=== PATIENT | male | born 1950 | race Caucasian/White ===

== ENCOUNTER → 2025-01-03 11:30 | Outpatient (REF) | payer OTHER, SELFPAY ==
[2025-01-03 12:27] LABS: % Basophils 0.4 % (0-2); % Eosinophils 1.5 % (0-6); % Immature Granulocytes 0.3 % (0-0.5); % Lymphocytes 27.4 % (20.5-51.1); % Monocytes 6.1 % (1.7-9.3); % Neutrophils 64.3 % (42.2-75.2); Absolute Eosinophils 0.1 10^3/uL (0-0.7); Absolute Lymphocytes 1.9 10^3/uL (1.2-3.4); Absolute Monocytes 0.4 10^3/uL (0.1-0.6); Absolute Neutrophils 4.4 10^3/uL (1.4-6.5); Hematocrit 38.1 % (39.0-52.0); Mean Corp Hgb Conc. 34.1 g/dL (33.0-37.0); Mean Corpuscular Hgb 33.8 pg (27.0-31.0); Mean Platelet Volume 11.1 fL (7.4-10.4); Nucleated Red Blood Cells % 0 % (-); Platelet Count 166 10^3/uL (130-400); Red Blood Cell Count 3.85 10^6/uL (4.70-6.10); Red Cell Dist. Width 12.1 % (11.5-14.5); White Blood Cell Count 6.8 10^3/uL (4.8-10.8)
[2025-01-03 12:57] LABS: ALT (SGPT) 46 U/L (0-50); AST (SGOT) 39 U/L (17-59); Albumin 5.2 g/dl (3.5-5.0); Alkaline Phosphatase 74 U/L (38-126); Blood Urea Nitrogen 23 mg/dl (9-20); Calcium 10.6 mg/dl (8.4-10.2); Carbon Dioxide 21 mmol/L (22-30); Chloride 108 mmol/L (98-107); Glucose 129 mg/dl (70-99); HDL Cholesterol 50 mg/dl; LDL Cholesterol, Calculated 33 mg/dl; Potassium 4.7 mmol/L (3.5-5.1); Sodium 144 mmol/L (135-145); Total Bilirubin 0.8 mg/dl (0.2-1.3); Total Cholesterol 104 mg/dl (50-199); Total Protein 7.6 g/dl (6.3-8.2); Triglyceride 109 mg/dl (10-149); Very Low Density Lipoprotein 21 mg/dl (0-30); eGFR > 60.00
[2025-01-03 13:19] LABS: PSA, Total - Screen 1.46 ng/ml (0.0-4.0)
[2025-01-03 14:10] LABS: Microalbumin, Random Urine 1.8 mg/dl (0.6-1.7); Microalbumin/creatinine Ratio 6.8 mg/g
[2025-01-03 14:19] LABS: Glycohemoglobin (HgbA1c) 6.8 % (4.0-5.6)
[2025-01-04 10:28] LABS: Intact PTH 40.4 pg/ml (13.6-85.8)
== END ==
LOC: REG 11:30
PROVIDERS: ATTENDING PHYSICIAN Nurse Practitioner Family
DX: E11.9 Type 2 diabetes mellitus without complications (principal); F32.9 Major depressive disorder, single episode, unspecified; Z12.5 Encounter for screening for malignant neoplasm of prostate
CPT/HCPCS: 36415; 80053; 80061; 82043; 82570; 83036; 83970; 84443; 85025; G0103

== ENCOUNTER → 2025-01-24 14:34 | Outpatient (REF) | payer OTHER, SELFPAY ==
[2025-01-24 15:45] LABS: Blood Urea Nitrogen 25 mg/dl (9-20); Calcium 9.9 mg/dl (8.4-10.2); Carbon Dioxide 23 mmol/L (22-30); Chloride 107 mmol/L (98-107); Glucose 115 mg/dl (70-99); Potassium 4.6 mmol/L (3.5-5.1); Sodium 140 mmol/L (135-145); eGFR > 60.00
[2025-01-25 11:01] LABS: Intact PTH 65.8 pg/ml (13.6-85.8)
== END ==
LOC: RAD 14:34
PROVIDERS: ATTENDING PHYSICIAN Nurse Practitioner Family
DX: J18.9 Pneumonia, unspecified organism (principal); E83.52 Hypercalcemia
CPT/HCPCS: 36415; 71046; 80048; 82330; 83970

== ENCOUNTER 2025-05-20 17:55 | Emergency (ER) | payer OTHER, SELFPAY ==
[2025-05-20 17:56] VITALS: BP 153/86
[2025-05-20 19:14] VITALS: BP 153/64
[2025-05-20 19:17] VITALS: BMI 29.7
[2025-05-20 19:28] LABS: Hematocrit 40.5 % (39.0-52.0); Hemoglobin 14.0 g/dL (13.0-18.0); Mean Corp Hgb Conc. 34.6 g/dL (33.0-37.0); Mean Corpuscular Volume 94.8 fL (80.0-94.0); Nucleated Red Blood Cells % 0 % (-); Platelet Count 146 10^3/uL (130-400); Red Cell Dist. Width 12.6 % (11.5-14.5)
[2025-05-20] MEDS: MORPHINE SULFATE 4 MG IV (19:39)
[2025-05-20 19:48] LABS: ALT (SGPT) 34 U/L (0-50); AST (SGOT) 35 U/L (17-59); Albumin 5.3 g/dl (3.5-5.0); Alkaline Phosphatase 74 U/L (38-126); Blood Urea Nitrogen 31 mg/dl (9-20); Calcium 10.5 mg/dl (8.4-10.2); Carbon Dioxide 21 mmol/L (22-30); Chloride 106 mmol/L (98-107); Estimated Creatinine Clearance 48 ml/min; Glucose 197 mg/dl (70-99); Potassium 5.0 mmol/L (3.5-5.1); Sodium 140 mmol/L (135-145); Total Protein 7.6 g/dl (6.3-8.2); eGFR > 60.00
--- NOTE | 2025-05-20 19:57 | ED.GENMED ---
History of Present Illness
General
Chief Complaint: Abdominal Symptoms
Source: patient and family
Exam Limitations: none
Time Seen by Provider: 05/20/25 19:21
Nursing documentation reviewed up to this point in time: agreed with
History of Present Illness
History of Present Illness:
75 male presents with abdominal pain woke up today feeling fine, he has chronic shortness of breath, unable to quantify how long as well as on for me scheduled to see pulmonary, said bypass surgery, in [facility], unsure of the details, his
gallbladder is out, had dinner tonight and had lower abdominal pain sweatiness felt like he needed to have a bowel movement could not have a bowel movement came to the ER since he has been in the ER has had a bowel movement and is feeling better
though still feels short of breath which again is a chronic problem for him he is also having some shakiness of his right leg he took some [id number] restless leg treatment which seem to have helped him, not currently drinking or smoking, had
heart stents prior to his bypass surgery,
Past History
Past History
ED Past Medical History: CAD, HTN, Other (Chronic dyspnea) and Other (Restless leg)
ED Past Surgical History: Cardiac and Cholecystectomy
Social History
Tobacco: Non-smoker
Alcohol: None
Drug: None
Living: with family
Employment: Retired
Review of Systems
Review of Systems
All Other Systems: Not applicable
Constitutional: Reports fatigue; Denies fever
Respiratory: Reports trouble breathing; Denies cough or hemoptysis
Cardiac: Denies chest pain
ABD/GI: Reports abdominal pain; Denies nausea or vomiting
: Reports no symptoms
Musculoskeletal: Reports no symptoms
Phy Exam
Physical Exam
Physical Exam:
Physical Exam
General: Chronically ill-appearing male breathing fast
Neck: No jaundice
Heart: Regular median sternotomy
Lungs: Neck without cracked
Abdomen: Soft nontender scar in the right upper abdomen
Neuro: alert and oriented. no focal neurological deficits
Skin: no rash
Psychiatric: Anxious but cooperative
Extremities: Edema is present
Course
Orders/Labs/Results
Orders:
Orders
05/20/25 19:20
Complete Blood Count/With Diff Urgent
Comprehensive Metabolic Panel Urgent
05/20/25 19:31
Add On- LAB Urgent
Tests Added?: bnp
05/20/25 19:32
Chest/Abd Angio w/wo Contrast CT [CT Chest/abd Angio W/wo Iv Con] Urgent
Comment:
Reason For Exam: cp pain, sob, abd pain tachy
Morphine Sulfate 4 mg IV NOW STA
05/20/25 19:37
Electrocardiogram (*1) Urgent
Reason for Study: Abdominal Pain
EKG- Treatment ONCE
05/20/25 19:45
NT-proBNP Urgent
Comment: ADDON
Troponin I Urgent
Abnormal Lab Results
05/20/25
19:20
RBC 4.27 L 10^6/uL
(4.70-6.10)
MCV 94.8 H fL
(80.0-94.0)
MCH 32.8 H pg
(27.0-31.0)
MPV 10.7 H fL
(7.4-10.4)
Absolute Neuts (auto) 8.4 H 10^3/uL
(1.4-6.5)
Absolute Monos (auto) 0.8 H 10^3/uL
(0.1-0.6)
Neutrophils % 78.2 H %
(42.2-75.2)
Lymphocytes % 14.0 L %
(20.5-51.1)
Carbon Dioxide 21 L mmol/L
(22-30)
BUN 31 H mg/dl
(9-20)
Glucose 197 H mg/dl
(70-99)
Calcium 10.5 H mg/dl
(8.4-10.2)
Albumin 5.3 H g/dl
(3.5-5.0)
05/20/25 19:20
05/20/25 19:20
Vital Signs
Initial and Last Documented VS:
Initial Vital Signs
Pulse Resp BP Pulse Ox
70 26 153/86 100
05/20/25 17:56 05/20/25 17:56 05/20/25 17:56 05/20/25 17:56
Last Documented Vital Signs
Pulse Resp BP Pulse Ox
71 21 153/64 100
05/20/25 20:45 05/20/25 20:45 05/20/25 19:14 05/20/25 20:45
MDM/Problems Addressed
Differential Diagnosis Includes:
Constipation diverticulitis AAA dissection PE ACS heart failure anxiety diverticular disease renal stone
MDM/Problems Addressed:
Abdominal pain constipation which resolved chronic tachypnea
Chronic conditions affecting care: CAD, Arrhythmia (Chronic right bundle branch block) and Previous abdomnial surgery
Acute Exacerbation and/or Progression of Chronic Illness: CAD and Previous abdomnial surgery
*Radiology
Radiology exam reviewed: radiology read reviewed
*Pulse Oximetry
SaO2: 100
Oxygen Mode of Delivery: Room air
Patient hypoxic: no
*EKG
Interpreted by ED Provider?: Yes
Interpretation: abnormal
Comparison EKG: no comparison EKG present
Heart Rate: 78
Rate: normal
Rhythm: sinus
QRS Pattern: right bundle branch block
Ischemia: non-specific ST changes
*Game Breeding Farm Manager Interpretation
Rate: normal
Interpretation: normal
Heart Rate: 78
Rhythm: sinus
*Critical Care Note
Total Time (30-74mins, 75-104mins- exclusive of procedures): Not Applicable
Update Note
Update Note:
10:[address] noted labs noted, differential as noted in the CT report patient is feeling better now, from a GI standpoint he feels short of breath which is not new according to family members, review of nursing he has been intermittently
tachypneic but at times not tachypneic, never hypoxic, reviewed with patient he has an appointment with pulmonary on June 18, I will see if I can get that pushed up in the meantime I did offer the patient admission and he prefers to go home, he
has no PE no dissection no RI I do not think he has sepsis, he states he had normal PFTs when he lived in [place] and normal echo cardiology said it was in his heart, per the patient, he was even talked it could be psychiatric versus behavioral
ED Attending Note
-
Portions of this chart may have been created with voice recognition software.� Occasional wrong word or��sound alike� substitutions may have occurred due to the inherent limitations of voice recognition software.
Discharge Plan
Departure
Patient Disposition: Home (Routine Discharge)
Date of Disposition: 05/20/25
Time of Disposition: 22:29
Patient with high blood pressure during this ER visit?: Yes
Condition: Good
Covid-19: Not Applicable
Discharge Problem:
Abdominal pain, Chronic shortness of breath
Instructions: Abdominal Pain, Shortness of breath in adults - ED (DC)
Referrals:
Ana Cristina Lazcano CRNP [Family Provider, Internal Medicine] - Next open appointment
Cas Bernal MD [Active, Pulmonary Medicine] - Keep scheduled appt
Activity Restrictions/Additional Instructions:
Follow-up with pulmonary as scheduled
Follow-up with your primary care provider
You are welcome return to the ER for worsening symptoms
Interventions
Interventions:
*Risk Screen - Suicide Last Done: 05/20/25 17:56
*General Assessment Last Done: 05/20/25 19:15
*Neglect/Abuse Screening Last Done: 05/20/25 19:15
*ED- Fall Risk Assessment Last Done: 05/20/25 19:15
*ED COVID-19 Vaccine History Last Done: 05/20/25 19:15
TR-Gowngc-Cnqaptadxy Assessment Last Done: 05/20/25 19:11
Discharge Date and Time
Print Language: MALTESE
[2025-05-20 20:28] LABS: Troponin I < 0.012 ng/ml
[2025-05-20 22:42] VITALS: BP 138/74
== END 2025-05-20 22:51 | disposition home or self-care (01) ==
LOC: EMR 17:55
PROVIDERS: EMERGENCY PHYSICIAN Emergency Medicine; FAMILY PHYSICIAN Nurse Practitioner Family
DX: R10.9 Unspecified abdominal pain (principal); R06.02 Shortness of breath; I25.10 Atherosclerotic heart disease of native coronary artery without angina pectoris; I10 Essential (primary) hypertension; G25.81 Restless legs syndrome; Z90.49 Acquired absence of other specified parts of digestive tract
CPT/HCPCS: 99284; 96374; 71275; 74175; 80053; 83880; 84484; 85025; 93005; Q9967

== ENCOUNTER → 2025-06-24 13:46 | Outpatient (REF) | payer OTHER, SELFPAY | LOC: HWRCS 13:46 | PROVIDERS: ATTENDING PHYSICIAN Internal Medicine; FAMILY PHYSICIAN Nurse Practitioner Family | DX: R06.02 Shortness of breath (principal) | CPT/HCPCS: 93306 ==

== ENCOUNTER 2025-06-28 16:41 | Emergency (ER) | payer OTHER, SELFPAY ==
[2025-06-28 16:41] VITALS: BMI 31.4
[2025-06-28 16:46] VITALS: BP 136/68
[2025-06-28 17:00] VITALS: BP 143/63
--- NOTE | 2025-06-28 17:01 | ED.GENMED ---
History of Present Illness
General
Chief Complaint: Breathing Problem
Source: patient
Exam Limitations: none
Time Seen by Provider: 06/28/25 16:50
History of Present Illness
History of Present Illness:
75 year old male from [facility] Living here for ongoing shortness of breath. He thinks there is no worsening symptoms but due to the persistence, he presents here today. He was having intermittent chest pain yesterday which is new, but denies
any chest pain currently. On xarelto for history of DVT. No missed doses. Saw a corrections identification technician on 06/20. History of CAD requiring CABG x 5 in [facility]. No fever. No cough. No orthopnea. Notes a good appetite. No other complaints.
Past History
Past History
ED Past Medical History: CAD, HTN, Other (Chronic dyspnea) and Other (Restless leg)
ED Past Surgical History: Cardiac and Cholecystectomy
Social History
Tobacco: Non-smoker
Alcohol: None
Drug: None
Living: with family
Employment: Retired
Phy Exam
Physical Exam
Physical Exam:
General: Well developed male no acute respiratory distress
HEENT: NC/AT
Heart: RRR, no murmurs
lungs; Clear bilaterally
Ext: mild thang, no cyanosis
Skin: warm, no rash.
Abd: soft, nontender
Scores
Heart Failure Risk
Heart Failure Risk Score: Not Applicable
Course
Orders/Labs/Results
Orders:
Orders
06/28/25 17:01
CR Chest - 2 Views Urgent
Comment:
Reason For Exam: sob
06/28/25 17:07
Electrocardiogram (*1) Urgent
Reason for Study: Shortness of Breath
EKG- Treatment ONCE
06/28/25 17:19
Complete Blood Count/With Diff Urgent
Comprehensive Metabolic Panel Urgent
NT-proBNP Urgent
Troponin I Urgent
Abnormal Lab Results
06/28/25
17:19
RBC 3.80 L 10^6/uL
(4.70-6.10)
Hgb 12.9 L g/dL
(13.0-18.0)
Hct 36.6 L %
(39.0-52.0)
MCV 96.3 H fL
(80.0-94.0)
MCH 33.9 H pg
(27.0-31.0)
MPV 10.8 H fL
(7.4-10.4)
Glucose 144 H mg/dl
(70-99)
06/28/25 17:19
06/28/25 17:19
Vital Signs
Initial and Last Documented VS:
Initial Vital Signs
Pulse Resp
75 17
06/28/25 16:45 06/28/25 16:45
Last Documented Vital Signs
Temp Pulse Resp BP Pulse Ox
98.2 F 67 18 138/63 99
06/28/25 16:48 06/28/25 17:45 06/28/25 17:45 06/28/25 17:30 06/28/25 18:00
MDM/Problems Addressed
Differential Diagnosis Includes:
Patient here with ongoing shortness of breath. This is not new but is persistent. There is no respiratory distress. He is not hypoxic. He is not requiring any additional oxygen here. He is mildly edematous. Will perform workup of EKG troponin
BNP chest x-ray. Unlikely to be PE secondary to anticoagulated state.
*Pulse Oximetry
SaO2: 100
Oxygen Mode of Delivery: Room air
Patient hypoxic: no
*Critical Care Note
Total Time (30-74mins, 75-104mins- exclusive of procedures): Not Applicable
Update Note
Update Note:
Patient remained stable here. Chest x-ray clear without evidence of pulmonary edema BNP and troponin are normal. Patient reexamined no further respiratory distress. He is never required oxygen here he has never been hypoxic. He has had symptoms
similar to this in the past. He has been seen by pulmonology within the past 2 weeks who referred him to cardiology. He has an appointment with them in about a week and a half. I reviewed recent echocardiogram which showed an ejection fraction of
61%. This was dated June 20 of this year
ED Attending Note
-
Portions of this chart may have been created with voice recognition software.� Occasional wrong word or��sound alike� substitutions may have occurred due to the inherent limitations of voice recognition software.
Discharge Plan
Departure
Patient Disposition: Home (Routine Discharge)
Date of Disposition: 06/28/25
Time of Disposition: 20:21
Patient with high blood pressure during this ER visit?: No
Discharge Problem:
Chronic shortness of breath
Instructions: Shortness of Breath (Dyspnea) (DC)
Referrals:
UNKNOWN - PT NOT,INTERVIEWE [Family Provider]
Activity Restrictions/Additional Instructions:
Please return here if needed otherwise follow-up with cardiology as planned
Interventions
Interventions:
*Risk Screen - Suicide Last Done: 06/28/25 16:48
*General Assessment Last Done: 06/28/25 16:48
*Neglect/Abuse Screening Last Done: 06/28/25 16:48
*ED- Fall Risk Assessment Last Done: 06/28/25 16:48
ED- Cardiac Assessment Last Done: 06/28/25 16:48
ED- Pulmonary Assessment Last Done: 06/28/25 16:48
Discharge Date and Time
Print Language: MALDIVIAN
[2025-06-28 17:30] VITALS: BP 138/63
[2025-06-28 17:39] LABS: Hematocrit 36.6 % (39.0-52.0); Hemoglobin 12.9 g/dL (13.0-18.0); Mean Corp Hgb Conc. 35.2 g/dL (33.0-37.0); Mean Corpuscular Volume 96.3 fL (80.0-94.0); Nucleated Red Blood Cells % 0 % (-); Platelet Count 138 10^3/uL (130-400); Red Cell Dist. Width 13.0 % (11.5-14.5)
[2025-06-28 18:00] LABS: AST (SGOT) 36 U/L (17-59); Albumin 4.7 g/dl (3.5-5.0); Alkaline Phosphatase 54 U/L (38-126); Blood Urea Nitrogen 17 mg/dl (9-20); Calcium 10.1 mg/dl (8.4-10.2); Carbon Dioxide 22 mmol/L (22-30); Chloride 107 mmol/L (98-107); Estimated Creatinine Clearance 62 ml/min; Glucose 144 mg/dl (70-99); Potassium 3.8 mmol/L (3.5-5.1); Sodium 139 mmol/L (135-145); Total Protein 7.1 g/dl (6.3-8.2); eGFR > 60.00
[2025-06-28 18:03] LABS: Troponin I < 0.012 ng/ml
[2025-06-28 18:10] LABS: ALT (SGPT) 35 U/L (0-50)
[2025-06-28 18:58] VITALS: BP 143/73
[2025-06-28 19:00] VITALS: BP 158/68
== END 2025-06-28 20:30 | disposition home or self-care (01) ==
LOC: EMR 16:41
PROVIDERS: Physician Assistant; EMERGENCY PHYSICIAN Emergency Medicine
DX: R06.02 Shortness of breath (principal); I25.10 Atherosclerotic heart disease of native coronary artery without angina pectoris; I10 Essential (primary) hypertension; G25.81 Restless legs syndrome; Z86.718 Personal history of other venous thrombosis and embolism; Z79.01 Long term (current) use of anticoagulants; Z95.1 Presence of aortocoronary bypass graft; Z90.49 Acquired absence of other specified parts of digestive tract
CPT/HCPCS: 99285; 71046; 80053; 83880; 84484; 85025; 93005

== ENCOUNTER → 2025-07-09 12:32 | Outpatient (REF) | payer OTHER, SELFPAY ==
[2025-07-09 13:37] LABS: ALT (SGPT) 23 U/L (0-50); AST (SGOT) 22 U/L (17-59); Albumin 4.6 g/dl (3.5-5.0); Alkaline Phosphatase 57 U/L (38-126); Blood Urea Nitrogen 24 mg/dl (9-20); Calcium 9.5 mg/dl (8.4-10.2); Carbon Dioxide 22 mmol/L (22-30); Chloride 108 mmol/L (98-107); Glucose 173 mg/dl (70-99); HDL Cholesterol 56 mg/dl; LDL Cholesterol, Calculated 48 mg/dl; Potassium 4.6 mmol/L (3.5-5.1); Sodium 141 mmol/L (135-145); Total Protein 6.9 g/dl (6.3-8.2); Very Low Density Lipoprotein 20 mg/dl (0-30); eGFR > 60.00
[2025-07-09 14:26] LABS: Glycohemoglobin (HgbA1c) 6.9 % (4.0-5.6)
== END ==
LOC: REG 12:32
PROVIDERS: ATTENDING PHYSICIAN Nurse Practitioner Family
DX: E11.9 Type 2 diabetes mellitus without complications (principal)
CPT/HCPCS: 36415; 80053; 80061; 83036

== ENCOUNTER → 2025-07-24 15:10 | Outpatient (REF) | payer OTHER, SELFPAY | LOC: DHVS 15:10 | PROVIDERS: ATTENDING PHYSICIAN Internal Medicine Cardiovascular Disease; FAMILY PHYSICIAN Nurse Practitioner Family | DX: I65.23 Occlusion and stenosis of bilateral carotid arteries (principal) | CPT/HCPCS: 93880 ==

== ENCOUNTER 2025-07-27 10:36 | Emergency (ER) | payer OTHER, SELFPAY ==
[2025-07-27 10:53] VITALS: BP 130/64
--- NOTE | 2025-07-27 11:46 | ED.MUSCINJ ---
HPI-Injury
General
Chief Complaint: Fall
Source: patient
Exam Limitations: none
Time Seen by Provider: 07/27/25 11:36
History of Present Illness-Injury
Initial Injury comments:
75-year-old male on [place] presents from [facility] after a fall he sustained yesterday afternoon. He woke up from a nap in his recliner lost his balance going to the bathroom and fell onto his left shoulder. He may have
hit his head. He denies loss of conscious. He notes more so left shoulder pain and slight lower back pain. He is ambulatory usually on his own without a cane or walker. He has been since the fall. No chest pain. No other complaints
Past History
Past History
ED Past Medical History: CAD, HTN, Other (Chronic dyspnea) and Other (Restless leg)
ED Past Surgical History: Cardiac and Cholecystectomy
Social History
Tobacco: Non-smoker
Alcohol: None
Drug: None
Living: with family
Employment: Retired
Phy Exam
Physical Exam
Physical Exam:
General: Well-appearing male no acute respiratory distress
HEENT normocephalic no obvious scalp abrasion or hematoma
Heart: Regular rate and rhythm
Lungs: Clear no wheeze
Musculoskeletal exam: Cervical spine nontender. He is mildly diffusely tender about the lumbar spine. Left shoulder tender superiorly over the clavicle and distal portion of the clavicle. No obvious deformities. The elbow is nontender good range
of motion to the extremity
Injury Course
Orders/Labs/Results
Orders:
Orders
07/27/25 10:53
Shoulder, Left 2 View CR [CR Shoulder - Left Min 2 View*] Urgent
Comment:
Reason For Exam: pain after fall
07/27/25 11:45
Hydrocodone 5/APAP 325 [[place] 5/325] 1 tablet PO NOW STA
CR Lumbar Spine 2 Or 3 Views Urgent
Comment:
Reason For Exam: fall
07/27/25 11:46
CT Head W/o Iv Contrast Urgent
Comment:
Reason For Exam: head injury
07/27/25 12:44
Sling Left-Treatment ONCE
MDM/Problems Addressed
Differential Diagnosis Includes:
Mechanical fall with left shoulder pain possible head strike on Xarelto. CT of the head ordered to evaluate for intracranial hemorrhage or skull fracture. X-rays left shoulder pending to evaluate for fracture or dislocation versus contusion.
X-ray lumbar spine ordered as well
*Pulse Oximetry
SaO2: 99
Oxygen Mode of Delivery: Room air
Patient hypoxic: no
*Critical Care Note
Total Time (30-74mins, 75-104mins- exclusive of procedures): Not Applicable
Update Note
Update Note:
X-ray left shoulder demonstrates distal clavicle fracture that is minimally displaced. CT of the head is negative. X-ray lumbar spine without acute finding. Sling applied. Will prescribe pain medicine. Stable for discharge with orthopedic
ED Attending Note
-
Portions of this chart may have been created with voice recognition software.� Occasional wrong word or��sound alike� substitutions may have occurred due to the inherent limitations of voice recognition software.
Discharge Plan
Departure
Patient Disposition: Home (Routine Discharge)
Date of Disposition: 07/27/25
Time of Disposition: 13:25
Patient with high blood pressure during this ER visit?: No
Discharge Problem:
Clavicle fracture
Prescriptions:
New
hydrocodone-acetaminophen 5-325 mg tablet
1 tab PO TID PRN (Reason: Pain) Qty: 10 0RF
Referrals:
Ana Cristina Lazcano CRNP [Family Provider, Internal Medicine]
Leighton Jerome MD [Active, Orthopedics]
Activity Restrictions/Additional Instructions:
Use sling for support. Use pain medicine as needed for severe pain. Return if worse otherwise follow-up with orthopedics
Interventions
Interventions:
*Risk Screen - Suicide Last Done: 07/27/25 10:51
*General Assessment Last Done: 07/27/25 10:51
*Neglect/Abuse Screening Last Done: 07/27/25 11:37
*ED- Fall Risk Assessment Last Done: 07/27/25 11:37
*ED COVID-19 Vaccine History Last Done: 07/27/25 11:37
*ED Influenza Vaccine History Last Done: 07/27/25 11:37
ED-Musculoskeletal Assessment Last Done: 07/27/25 11:37
ED- Neurological Assessment Last Done: 07/27/25 11:37
ED-Skin Assessment Last Done: 07/27/25 11:37
Discharge Date and Time
Print Language: BULGARIAN
[2025-07-27] MEDS: NORCO 5/325 1 TABLET PO (12:02)
[2025-07-27 12:20] VITALS: BP 136/69
== END 2025-07-27 13:50 | disposition home or self-care (01) ==
LOC: EMR 10:36
PROVIDERS: EMERGENCY PHYSICIAN Emergency Medicine; FAMILY PHYSICIAN Nurse Practitioner Family
DX: S42.035A Nondisplaced fracture of lateral end of left clavicle, initial encounter for closed fracture (principal); W18.39XA Other fall on same level, initial encounter; Y93.01 Activity, walking, marching and hiking; Y92.038 Other place in apartment as the place of occurrence of the external cause; I25.10 Atherosclerotic heart disease of native coronary artery without angina pectoris; I10 Essential (primary) hypertension; Z79.01 Long term (current) use of anticoagulants
CPT/HCPCS: 99284; 70450; 72100; 73030

== ENCOUNTER 2025-07-31 23:56 | Emergency (ER) | payer OTHER, SELFPAY ==
[2025-08-01 00:18] LABS: Glucose - Point of Care 122 mg/dl (70-99)
--- NOTE | 2025-08-01 01:14 | ED.GENMED ---
Addendum entered and electronically signed by Freddy Valle DO 08/01/25 02:35:
Discussed with patient he gives consent for transfer to [facility] trauma center
Call to the transfer center discussed with trauma attending
Addendum entered and electronically signed by Freddy Valle DO 08/01/25 02:16:
Discussed with the radiology small subdural
CRITICAL CARE STATEMENT: A total of 32minutes of critical care time was provided for this patient. This includes management of unstable vital signs, evaluation of the patient at bedside, reviewing the patient's pertinent medical records discussion
with EMS providers and patient's family in addition to discussion with consultants, review of old EKGs and review of pertinent medical records. This time with separate from time utilized to perform the aforementioned documented procedures
Original Note:
History of Present Illness
General
Chief Complaint: Fall
Source: patient, records and previous radiology exam
Exam Limitations: none
Time Seen by Provider: 08/01/25 00:47
History of Present Illness
History of Present Illness:
75-year-old male on Xarelto fell getting out of recliner struck his head no loss of consciousness
Past History
Past History
ED Past Medical History: CAD, HTN, Other (Chronic dyspnea) and Other (Restless leg)
ED Past Surgical History: Cardiac and Cholecystectomy
Social History
Tobacco: Non-smoker
Alcohol: None
Drug: None
Living: with family
Employment: Retired
Phy Exam
Physical Exam
Physical Exam:
Physical Exam
General: Fair complected male, resting in no acute distress
Neck: No tongue bite no posterior
Heart: Regular
Lungs: no acute respiratory distress. clear bilaterally point tender in the left AC joint
Abdomen: Round
Neuro: alert and oriented. no focal neurological deficits
Skin: no rash
Psychiatric: well kept. interactive and cooperative
Extremities: Trace edema
Course
Orders/Labs/Results
Orders:
Orders
08/01/25 00:[address] [CT Head W/o Iv Contrast] Urgent
Comment:
Reason For Exam: Fall on xarelto
08/01/25 00:43
Cervical Spine wo Contrast CT [CT Cervical Spine W/o Iv Contr] Urgent
Comment:
Reason For Exam: fall
08/01/25 00:54
Chest [CR Chest - 2 Views ] Urgent
Comment:
Reason For Exam: tachypnic
08/01/25 01:33
Complete Blood Count/With Diff Urgent
Comprehensive Metabolic Panel Urgent
Abnormal Lab Results
08/01/25 08/01/25
00:17 01:33
RBC 3.50 L 10^6/uL
(4.70-6.10)
Hgb 11.7 L g/dL
(13.0-18.0)
Hct 33.2 L %
(39.0-52.0)
MCV 94.9 H fL
(80.0-94.0)
MCH 33.4 H pg
(27.0-31.0)
Plt Count 114 L 10^3/uL
(130-400)
MPV 10.8 H fL
(7.4-10.4)
POC Glucose 122 H mg/dl
(70-99)
08/01/25 01:33
Vital Signs
Initial and Last Documented VS:
Initial Vital Signs
Temp Pulse Resp
97.5 F 79 28
08/01/25 00:00 08/01/25 00:00 08/01/25 00:00
Last Documented Vital Signs
Temp Pulse Resp Pulse Ox
97.5 F 107 26 100
08/01/25 00:00 08/01/25 00:30 08/01/25 00:30 08/01/25 01:51
MDM/Problems Addressed
Differential Diagnosis Includes:
Second fall in the past few days will check labs CT of the head cervical spine as he is anticoagulated,
Patient did have some tachypnea, improved without any intervention, again he is anticoagulated
MDM/Problems Addressed:
Fall
Chronic conditions affecting care:
Anticoagulation
Acute Exacerbation and/or Progression of Chronic Illness:
Anticoagulation
*Radiology
Radiology exam reviewed: radiology read reviewed
*Pulse Oximetry
SaO2: 100
Oxygen Mode of Delivery: Room air
Patient hypoxic: no
*Shear Tender Interpretation
Rate: normal
Interpretation: normal
Heart Rate: 74
Rhythm: sinus
*Critical Care Note
Total Time (30-74mins, 75-104mins- exclusive of procedures): Not Applicable
Update Note
Update Note:
Update
CT noted full report pending, chest x-ray noted looks like a healing clavicle fracture otherwise unremarkable labs are noted
ED Attending Note
-
Portions of this chart may have been created with voice recognition software.� Occasional wrong word or��sound alike� substitutions may have occurred due to the inherent limitations of voice recognition software.
Discharge Plan
Departure
Prescriptions:
No Action
hydrocodone-acetaminophen 5-325 mg tablet
1 tab PO TID PRN (Reason: Pain) Qty: 10 0RF
Referrals:
Irma Queen MD [Family Provider, Internal Medicine]
Interventions
Interventions:
*Risk Screen - Suicide Last Done: 08/01/25 00:17
*General Assessment Last Done: 08/01/25 00:16
*Neglect/Abuse Screening Last Done: 08/01/25 00:17
*ED- Fall Risk Assessment Last Done: 08/01/25 00:15
*ED COVID-19 Vaccine History Last Done: 08/01/25 00:07
*ED Influenza Vaccine History Last Done: 08/01/25 00:07
ED-Musculoskeletal Assessment Last Done: 08/01/25 00:35
ED- Neurological Assessment Last Done: 08/01/25 00:35
ED-Skin Assessment Last Done: 08/01/25 00:35
Discharge Date and Time
Print Language: MONGOLIAN
[2025-08-01 01:43] LABS: Hematocrit 33.2 % (39.0-52.0); Hemoglobin 11.7 g/dL (13.0-18.0); Mean Corp Hgb Conc. 35.2 g/dL (33.0-37.0); Mean Corpuscular Volume 94.9 fL (80.0-94.0); Nucleated Red Blood Cells % 0 % (-); Platelet Count 114 10^3/uL (130-400); Red Cell Dist. Width 12.9 % (11.5-14.5)
[2025-08-01 02:00] VITALS: BP 157/75
[2025-08-01 02:07] LABS: ALT (SGPT) 23 U/L (0-50); AST (SGOT) 24 U/L (17-59); Albumin 4.4 g/dl (3.5-5.0); Alkaline Phosphatase 58 U/L (38-126); Blood Urea Nitrogen 18 mg/dl (9-20); Calcium 10.1 mg/dl (8.4-10.2); Carbon Dioxide 21 mmol/L (22-30); Chloride 106 mmol/L (98-107); Estimated Creatinine Clearance 78 ml/min; Glucose 130 mg/dl (70-99); Potassium 4.3 mmol/L (3.5-5.1); Sodium 137 mmol/L (135-145); Total Protein 6.8 g/dl (6.3-8.2); eGFR > 60.00
[2025-08-01] MEDS: KCENTRA 80 UNIT IV (02:51)
[2025-08-01] MEDS: MORPHINE SULFATE 2 MG IV (02:58)
[2025-08-01 03:00] VITALS: BP 165/74
== END 2025-08-01 03:51 | disposition short-term general hospital (02) ==
LOC: EMR 23:56
PROVIDERS: EMERGENCY PHYSICIAN Emergency Medicine; FAMILY PHYSICIAN Internal Medicine
DX: S06.5X0A Traumatic subdural hemorrhage without loss of consciousness, initial encounter (principal); W08.XXXA Fall from other furniture, initial encounter; I10 Essential (primary) hypertension; I25.10 Atherosclerotic heart disease of native coronary artery without angina pectoris; G25.81 Restless legs syndrome; Z79.01 Long term (current) use of anticoagulants; Z90.49 Acquired absence of other specified parts of digestive tract
CPT/HCPCS: 99291; 96365; 96375; 70450; 71046; 72125; 73080; 80053; 82962; 85025; J7168

== ENCOUNTER → 2025-08-08 11:31 | Outpatient (REF) | payer OTHER, SELFPAY ==
[2025-08-08 12:02] LABS: Hematocrit 33.4 % (39.0-52.0); Hemoglobin 11.6 g/dL (13.0-18.0); Mean Corp Hgb Conc. 34.7 g/dL (33.0-37.0); Mean Corpuscular Volume 99.7 fL (80.0-94.0); Platelet Count 122 10^3/uL (130-400); Red Cell Dist. Width 12.6 % (11.5-14.5)
[2025-08-08 12:19] LABS: ALT (SGPT) 25 U/L (0-50); AST (SGOT) 22 U/L (17-59); Albumin 4.1 g/dl (3.5-5.0); Alkaline Phosphatase 57 U/L (38-126); Blood Urea Nitrogen 25 mg/dl (9-20); Calcium 9.1 mg/dl (8.4-10.2); Carbon Dioxide 21 mmol/L (22-30); Chloride 108 mmol/L (98-107); Glucose 137 mg/dl (70-99); Magnesium 1.7 mg/dl (1.6-2.3); Potassium 4.2 mmol/L (3.5-5.1); Sodium 135 mmol/L (135-145); Total Protein 6.5 g/dl (6.3-8.2); eGFR > 60.00
== END ==
LOC: OLABWHC 11:31
PROVIDERS: ATTENDING PHYSICIAN Family Medicine
DX: S42.002D Fracture of unspecified part of left clavicle, subsequent encounter for fracture with routine healing (principal); E11.9 Type 2 diabetes mellitus without complications; E78.5 Hyperlipidemia, unspecified
CPT/HCPCS: 36415; 80053; 83735; 85027

== ENCOUNTER → 2025-08-27 14:02 | Outpatient (REF) | payer OTHER, SELFPAY | LOC: RAD 14:02 | PROVIDERS: ATTENDING PHYSICIAN Nurse Practitioner Family | DX: R31.0 Gross hematuria (principal); R30.0 Dysuria; Z87.442 Personal history of urinary calculi | CPT/HCPCS: 74176 ==